=== PATIENT | female | born 1975 | race Caucasian/White ===

== ENCOUNTER 2024-10-21 09:25 | Emergency (ER) | payer BC ==
[2024-10-21 09:33] VITALS: TEMP 98.6; BMI 37.8
[2024-10-21] MEDS ORDERED: ACETAMINOPHEN INJECTION 100 ML ONE (10:56)
[2024-10-21 10:59] LABS: ABSOLUTE IMMATURE GRANULOCYTES 0.01 x10^3/uL (0.0-0.031); BASOPHILS # 0.02 x10^3/uL (0.01-0.08); EOSINOPHIL % 1.1 % (0.7-5.8); EOSINOPHILS # 0.05 x10^3/uL (0.04-0.36); HEMOGLOBIN 14.9 g/dL (11.2-15.7); MCHC 33.1 g/dl (32.2-35.5); MEAN CELL VOLUME 88.2 fl (79.4-94.8); MEAN PLT VOLUME 8.9 fl (9.4-12.3); MONOCYTE # 0.22 x10^3/uL (0.24-0.86); PLATELET COUNT 343 x10^3/uL (182-369); RDW 12.3 % (12.2-17.1)
[2024-10-21] MEDS: ACETAMINOPHEN 1000 MG/100 ML BAG IVPB ONE (11:06)
[2024-10-21 11:22] LABS: POTASSIUM 4.2 mmol/L (3.5-5.1)
[2024-10-21 11:24] LABS: ALBUMIN 3.8 g/dl (3.4-5.0); BLOOD UREA NITROGEN 14.5 mg/dL (7-18); CALCIUM 9.7 mg/dL (8.5-10.1)
[2024-10-21 11:27] LABS: CREATININE 0.9 mg/dL (0.55-1.3)
[2024-10-21 11:29] LABS: TOT PROT 7.3 g/dl (6.4-8.2)
[2024-10-21 11:34] LABS: BILIRUBIN,TOTAL 0.6 mg/dL (0.2-1)
[2024-10-21] MEDS ORDERED: METHOCARBAMOL 500 MG TABLET ONE (13:02)
[2024-10-21] MEDS: METHOCARBAMOL 500 MG TABLET PO ONE (13:05)
[2024-10-21 13:20] VITALS: BP 116/62; PULSE 98; RESP 16
[2024-10-21 14:38] LABS: HIV INTERPRETATION NEGATIVE (NEGATIVE)
== END 2024-10-21 14:44 | disposition home or self-care (01) ==
LOC: JER 09:25
PROC: 3E033NZ Introduction of Analgesics, Hypnotics, Sedatives into Peripheral Vein, Percutaneous Approach (ICD-10-PCS; principal; 2024-10-21)
DX: S09.90XA Unspecified injury of head, initial encounter (principal); R55 Syncope and collapse; M25.511 Pain in right shoulder; M25.561 Pain in right knee; M54.2 Cervicalgia; M54.9 Dorsalgia, unspecified; R19.7 Diarrhea, unspecified; W01.198A Fall on same level from slipping, tripping and stumbling with subsequent striking against other object, initial encounter
CPT/HCPCS: 0241U-QW; 36415; 70450-TC; 71045-TC-FY; 72125-TC; 72170-TC-FY; 73030-TC-RT-FY; 73060-TC-RT-FY; 73562-TC-RT-FY; 80053; 84484; 85025; 86803; 87389; 93005; 93010; 99285-25; J0131